=== PATIENT | female | born 1955 | race Hispanic/Latino ===

== ENCOUNTER 2018-05-18 12:13 | Observation (INO) | payer MEDICARE ==
--- NOTE | 2018-05-18 13:12 | ED PDOC ---
Arrival/HPI - General Chief Complaint: Shortness Of Breath Time Seen by Provider: 05/18/18 12:42 Historian: Patient - History of Present Illness Narrative History of Present Illness (Text): 05/18/18 13:08 62yr old female with hx of COPD presents today with dizziness and near syncope. pt states she was sitting in the waiting room at her sons doctors office when she suddenly felt dizzy and weak like she was going to pass out. pt denies chest pain. pt states she was initally feeling short of breath, but denies shortness of breath at present time. she denies fever/chills. pt denies headache. denies uri symptoms. pt with hx of lower leg swelling. denies trauma or injury. patients son states that the patient slumped over in the chair, but was arosable. no other complaints. Past Medical History - Provider Review Nursing Documentation Reviewed: Yes - Travel History Have you recently traveled outside [place] w/in the past 3 mons?: No - Infectious Disease Hx of Infectious Diseases: None - Pulmonary Hx Chronic Obstructive Pulmonary Disease (COPD): Yes - Neurological HX Cerebrovascular Accident: Yes Hx Seizures: Yes - Endocrine/Metabolic Hx Systemic Lupus Erythematosus: Yes - Psychiatric Hx Substance Use: No - Surgical History Hx Orthopedic Surgery: Yes (knee replacement) Other/Comment: thyroidsurgery , abd surgery - Anesthesia Hx Anesthesia: Yes Hx Anesthesia Reactions: No Family/Social History - Physician Review Nursing Documentation Reviewed: Yes Family/Social History: Unknown Family HX Smoking Status: Unknown If Ever Smoked Hx Alcohol Use: No Hx Substance Use: No Allergies/Home Meds Allergies/Adverse Reactions: Allergies codeine Allergy (Verified 05/18/18 12:24) RASH Iodine and Iodide Containing Produc Allergy (Verified 05/18/18 12:24) RASH prednisone Allergy (Verified 05/18/18 12:24) RASH Review of Systems - Review of Systems Constitutional: Fatigue. absent: Fevers Respiratory: SOB. absent: Cough Cardiovascular: absent: Chest Pain, Palpitations Gastrointestinal: absent: Abdominal Pain, Nausea, Vomiting Musculoskeletal: absent: Arthralgias, Back Pain, Neck Pain Skin: absent: Rash, Pruritis Neurological: Dizziness. absent: Headache Psychiatric: absent: Anxiety, Depression Physical Exam Vital Signs Reviewed: Yes Vital Signs Temp Pulse Resp BP Pulse Ox 05/18/18 15:06 73 20 135/87 96 05/18/18 12:13 97.6 F 68 18 133/93 H 98 Temperature: Afebrile Blood Pressure: Hypertensive Pulse: Regular Respiratory Rate: Normal Appearance: Positive for: Well-Appearing, Non-Toxic, Comfortable Pain Distress: None Mental Status: Positive for: Alert and Oriented X 3 Finger Stick Blood Glucose: 110 - Systems Exam Head: Present: Atraumatic Mouth: Present: Moist Mucous Membranes Neck: Present: Normal Range of Motion Respiratory/Chest: Present: Clear to Auscultation, Good Air Exchange. No: Respiratory Distress, Accessory Muscle Use Cardiovascular: Present: Regular Rate and Rhythm, Normal S1, S2. No: Murmurs Abdomen: No: Tenderness, Distention, Rebound, Guarding Back: Present: Normal Inspection Upper Extremity: Present: Normal ROM Lower Extremity: Present: Normal ROM Neurological: Present: GCS=15 Skin: Present: Warm, Dry, Normal Color. No: Rashes Psychiatric: Present: Alert, Oriented x 3 Medical Decision Making ED Course and Treatment: 05/18/18 14:18 62yr old female with dizziness and weakness. cbc wnl cmp wnl trop wnl bnp wnl EKG; normal sinus rhythm at 68 bpm normal axis normal intervals no ST elevations duplex; negative for dvt bilaterally verbal report from [employer] tech. cxr: wnl ct head; FINDINGS: HEMORRHAGE: No intracranial hemorrhage. BRAIN: No mass effect or edema. No atrophy or chronic microvascular ischemic changes. VENTRICLES: Unremarkable. No hydrocephalus. CALVARIUM: Unremarkable. PARANASAL SINUSES: Unremarkable as visualized. No significant inflammatory changes. MASTOID AIR CELLS: Unremarkable as visualized. No inflammatory changes. OTHER FINDINGS: None. IMPRESSION: No acute intracranial findings pt reassessment; pt is non toxic well appearing; no distress. case discussed with dr. lizama, accepts observational status admission for near syncope. asa given PO per dr. lizama; will consult dr. buck. impression; near syncope admit observational status to tele. Reassessment Condition: Re-examined, Improved - Lab Interpretations Lab Results: 05/18/18 13:00 05/18/18 13:00 Lab Results 05/18/18 13:00: WBC 5.0, RBC 4.05, Hgb 12.6, Hct 37.2, MCV 91.9, MCH 31.1, MCHC 33.9, RDW 12.3, Plt Count 167, MPV 9.8, Gran % 64.2, Lymph % (Auto) 25.2, [place] % (Auto) 7.0 H, Eos % (Auto) 3.0, Baso % (Auto) 0.6, Gran # 3.21, Lymph # (Auto ) 1.3, [place] # (Auto) 0.4, Eos # (Auto) 0.2, Baso # (Auto) 0.03 05/18/18 13:00: Sodium 146, Potassium 4.0, Chloride 105, Carbon Dioxide 29, Anion Gap 16, BUN 15, Creatinine 0.8, Est GFR ( Amer) > 60, Est GFR (Non- Af Amer) > 60, Random Glucose 108, Calcium 10.1, Total Bilirubin 0.6, AST 24, ALT 16, Alkaline Phosphatase 90, Lactate Dehydrogenase 542, Total Creatine Kinase 71, Troponin I < 0.01, NT-Pro-B Natriuret Pep 114, Total Protein 8.1, Albumin 4.4, Globulin 3.7, Albumin/Globulin Ratio 1.2 05/18/18 12:36: POC Glucose (mg/dL) 110 - RAD Interpretation Radiology Orders: 05/18/18 12:42 CHEST PORTABLE [RAD] Stat 05/18/18 12:50 DUPLEX LOWER EXTRM VEIN BILAT [US] Stat 05/18/18 13:34 HEAD W/O CONTRAST [CT] Stat - Medication Orders Current Medication Orders: Aspirin (Aspirin) 325 mg PO STAT STA Stop: 05/18/18 15:30 Disposition/Present on Arrival - Present on Arrival Any Indicators Present on Arrival: No History of DVT/PE: No History of Uncontrolled Diabetes: No Urinary Catheter: No History of Decub. Ulcer: No History Surgical Site Infection Following: Abdominal Surgery - Disposition Have Diagnosis and Disposition been Completed?: Yes Diagnosis: Dizziness, Near syncope Disposition: HOSPITALIZED Disposition Time: 15:08 Patient Plan: Observation Patient Problems: Current Active Problems Problem Status Onset Dizziness Acute Near syncope Acute Condition: FAIR Referrals: Jimmy Celeste MD [Primary Care Provider] - Follow up with primary Forms: [employer] (Malawian)
--- NOTE | 2018-05-18 13:16 | RAD ---
Date of service: 05/18/2018 HISTORY: shortness of breath COMPARISON: No prior. FINDINGS: LUNGS: No active pulmonary disease. PLEURA: No significant pleural effusion identified, no pneumothorax apparent. CARDIOVASCULAR: Mild cardiomegaly OSSEOUS STRUCTURES: No significant abnormalities. VISUALIZED UPPER ABDOMEN: Normal. OTHER FINDINGS: None. IMPRESSION: No active disease.
[2018-05-18 13:28] LABS: BASO # 0.03 K/mm3 (0.0-2.0); BASO % 0.6 % (0.0-3.0); EOS # 0.2 (0.0-0.7); GRAN # 3.21 (1.4-6.5); GRAN % 64.2 % (50.0-68.0); HEMOGLOBIN 12.6 g/dL (12.0-16.0); LYMPH # 1.3 (1.2-3.4); LYMPH % 25.2 % (22.0-35.0); MEAN CELL VOLUME 91.9 fl (80.0-105.0); MEAN CORPUSCULAR HEMOGLOBIN 31.1 pg (25.0-35.0); MEAN CORPUSCULAR HGB CONC 33.9 g/dl (31.0-37.0); MEAN PLATELET VOLUME 9.8 fl (7.0-11.0); MONO # 0.4 (0.1-0.6); RBC 4.05 10^6/uL (3.5-6.1); RED CELL DISTRIBUTION WIDTH 12.3 % (11.5-14.5)
[2018-05-18 13:49] LABS: ALB/GLOB RATIO 1.2 (1.1-1.8); ALBUMIN 4.4 g/dL (3.0-4.8); ALT/SGPT 16 U/L (7-56); AST/SGOT 24 U/L (14-36); BLOOD UREA NITROGEN 15 mg/dL (7-21); CALCIUM 10.1 mg/dL (8.4-10.5); GFR NON-AFRICAN AMERICAN > 60
[2018-05-18 13:57] LABS: B-TYPE NATRIURETIC PEPTIDE 114 pg/mL (0-450)
[2018-05-18 14:02] LABS: TROPONIN I < 0.01 ng/mL
--- NOTE | 2018-05-18 14:33 | CT ---
Date of service: 05/18/2018 PROCEDURE: CT HEAD WITHOUT CONTRAST. HISTORY: dizziness COMPARISON: None available. TECHNIQUE: Axial computed tomography images were obtained through the head/brain without intravenous contrast. Radiation dose: Total exam DLP = 951 mGy-cm. This CT exam was performed using one or more of the following dose reduction techniques: Automated exposure control, adjustment of the mA and/or kV according to patient size, and/or use of iterative reconstruction technique. FINDINGS: HEMORRHAGE: No intracranial hemorrhage. BRAIN: No mass effect or edema. No atrophy or chronic microvascular ischemic changes. VENTRICLES: Unremarkable. No hydrocephalus. CALVARIUM: Unremarkable. PARANASAL SINUSES: Unremarkable as visualized. No significant inflammatory changes. MASTOID AIR CELLS: Unremarkable as visualized. No inflammatory changes. OTHER FINDINGS: None. IMPRESSION: No acute intracranial findings
--- NOTE | 2018-05-18 16:30 | US ---
HISTORY: Leg pain and swelling. Evaluate for DVT PHYSICIAN(S): Manas Keating MD. TECHNIQUE: Duplex sonography and color-flow Doppler with graded compression were used to evaluate the deep venous systems of both lower extremities. The exam is limited by edema. FINDINGS: The visualized deep venous systems of both lower extremities are sonographically normal and compressible. Normal wave forms and augmentation are seen. There is no sonographic evidence for deep venous thrombosis in the visualized segments of both lower extremities. IMPRESSION: No sonographic evidence for deep venous thrombosis in the visualized segments of both lower extremities.
[2018-05-18 20:09] VITALS: BMI 37.5
[2018-05-18] MEDS ORDERED: Pneumococcal 23-Valent Vaccine IM ONE (20:09)
--- NOTE | 2018-05-19 00:35 | CP.PCM.PN ---
Subjective - Date & Time of Evaluation Date of Evaluation: 05/19/18 Time of Evaluation: 00:30 - Subjective Subjective: PGY-[address] Baxter CC: Chest pain CP locates L mid clavicular. burning. 5/10, x 25 minutes that woke her up from sleep Denies SOB, diaphoresis, NV, dizzinessness Hx lupus No cardiac hx endorsed by pt VS: 135/77 HR 62 RR 16 RRR, S1 S2, pain non-reproductable CTA b/l no w/r/r/ Soft NTND A/P: likely atypical chest. continue work up to r/o acs due to lupus hx - trops - EKG Objective - Vital Signs/Intake and Output Vital Signs (last 24 hours): Temp Pulse Resp BP Pulse Ox 98.2 F 64 20 143/68 97 05/18/18 19:38 05/18/18 19:38 05/18/18 19:38 05/18/18 19:38 05/18/18 18:10 - Medications Medications: Current Medications Acetaminophen (Tylenol 325mg Tab) 650 mg PO Q6H PRN PRN Reason: Pain, Mild (1-3) Aspirin (Aspirin Chewable) 81 mg PO DAILY [facility] Levetiracetam (Keppra) 750 mg PO BID [facility] Last Admin: 05/18/18 22:11 Dose: 750 mg
[2018-05-19 01:43] LABS: PH,URINE 7.5 (4.7-8.0); URINE BILIRUBIN NEGATIVE (NEGATIVE); URINE BLOOD NEGATIVE (NEGATIVE); URINE GLUCOSE (UA) NEGATIVE (NEGATIVE); URINE LEUKOCYTE ESTERASE NEGATIVE Leu/uL (NEGATIVE); URINE PROTEIN NEGATIVE mg/dL (<30 mg/dL); URINE UROBILINOGEN 0.2 E.U./dL (<1 E.U./dL)
[2018-05-19 01:50] LABS: URINE APPEARANCE CLEAR (CLEAR); URINE COLOR STRAW (YELLOW)
[2018-05-19 02:12] LABS: TROPONIN I < 0.01 ng/mL
--- NOTE | 2018-05-19 04:35 | HP ---
Copied To: Ken Pond DO Attending MD: Ken Pond DO HISTORY OF PRESENT ILLNESS: I was called down to the emergency room to see her and I asked to go to see her in her hospital bed in room 264. She comes in with shortness of breath. This is a 62-year-old with history of COPD, but had dizziness and near syncope. She was sitting in a waiting room at her son's doctor's office and she felt dizzy. She felt she was going to pass out. No chest pain. A little short of breath. No trauma. Kind of slumped over on the chair, but was arousable. She said this happened to her in the past. PAST MEDICAL HISTORY: She has COPD. She had CVAs. She has seizure history. She has lupus history. She had a total knee replacement, thyroid surgery, abdominal surgery. FAMILY HISTORY: Unknown. SOCIAL HISTORY: Never smoked. No alcohol. No drugs. ALLERGIES: ALLERGIC TO CODEINE, IODINE AND PREDNISONE. MEDICATIONS: She did give a list of the medication to the nurse and it is not in the computer yet, I will wait for that to populate. REVIEW OF SYSTEMS: She is tired. She is short of breath. She felt dizzy. No chest pain or palpitations. No abdominal pain, nausea or vomiting. No arthralgias, back pain or neck pain. No rashes or itching. She was dizzy. No headache. No anxiety or depression. PHYSICAL EXAMINATION: VITAL SIGNS: She has a 97.6 temp, 68 pulse, 18 respiratory rate, 133/93 blood pressure, but blood pressure dropped to 135/87 and 98% O2 sat down to 96% O2 sat. Little hypertensive, we have to put her back on her medications. GENERAL: She is comfortable at this time, well appearing, nontoxic, no acute changes and feel dizzy at this time. Alert and oriented x3. Blood sugar was 110. HEENT: Head is atraumatic and normocephalic. Mucous membranes are moist. NECK: Supple. HEART: Regular rate. Normal S1, S2. LUNGS: Decreased breath sounds but clear to auscultation bilaterally. Poor inspiration. ABDOMEN: Soft, nontender. Positive bowel sounds. No guarding, no rebound, no CVA tenderness. EXTREMITIES: Have no edema. She moves all four extremities equally. Equal strength bilaterally. NEUROLOGY: GCS is 15. Cranial nerves II through XII grossly intact. Extraocular muscles are intact. SKIN: For I could tell is no rashes, no ulcers, no lesions. PSYCHIATRIC: She is alert and oriented x3. LYMPHATICS: Thyroid midline. No palpable appreciable lymphadenopathy. LABORATORY DATA: She had a bunch of tests done. Chest x-ray was okay. Head CAT scan was okay. Extremity ultrasound was okay. She has 146 sodium, potassium 4, BUN 15, creatinine 0.8, GFR greater than 60, sugar is 108, calcium 10.1, total bili is 0.6, AST is 24, ALT is 16, alk phos 90. Lactate dehydrogenase is 542, total creatine kinase is 71. Troponin I is less than 0.01. BNP is 114. Total protein is 8.1, albumin is 4.4. White count is 5, hemoglobin is 12.6, hematocrit 37.2, platelets 167. ASSESSMENT AND PLAN: She is here for near syncope. She will have a consult with Dr. Powers, the neurologist. She had an aspirin already given to her, I will continue a baby aspirin tomorrow. I am awaiting for the rest of her medicines to populate and I will continue them. She needs medicines for lupus. She has medicines for her blood pressure, her lungs, all are chronic diseases. Hopefully she will be on observation, she will improve and tomorrow if all the tests are normal as per Neurology. She is on telemetry. Ken Pond DO MTDD
[2018-05-19] MEDS ORDERED: Levothyroxine 125 MCG TAB PO SCH (06:00)
[2018-05-19 06:33] VITALS: O2SAT 98
[2018-05-19 06:39] LABS: ALB/GLOB RATIO 1.2 (1.1-1.8); ALBUMIN 3.8 g/dL (3.0-4.8); ALT/SGPT 21 U/L (7-56); AST/SGOT 25 U/L (14-36); BLOOD UREA NITROGEN 12 mg/dL (7-21); CALCIUM 9.4 mg/dL (8.4-10.5); GFR NON-AFRICAN AMERICAN > 60
[2018-05-19 06:42] LABS: HEMOGLOBIN 11.3 g/dL (12.0-16.0); MEAN CELL VOLUME 91.8 fl (80.0-105.0); MEAN CORPUSCULAR HEMOGLOBIN 30.8 pg (25.0-35.0); MEAN CORPUSCULAR HGB CONC 33.5 g/dl (31.0-37.0); MEAN PLATELET VOLUME 10.1 fl (7.0-11.0); RBC 3.67 10^6/uL (3.5-6.1); RED CELL DISTRIBUTION WIDTH 12.4 % (11.5-14.5); WHITE BLOOD COUNT 4.1 10^3/ul (4.5-11.0)
[2018-05-19] MEDS ORDERED: Naproxen 275 mg Tab PO SCH (10:00)
--- NOTE | 2018-05-19 10:15 | CARD ---
APPROVED REPORT Date of service: 05/18/2018 EKG Measurement Heart [id number] <Conclusion> Normal sinus rhythm Normal ECG
--- NOTE | 2018-05-19 12:06 | CARD ---
APPROVED REPORT Date of service: 05/19/2018 EKG Measurement Heart [id number] <Conclusion> Normal sinus rhythm Mild NSSTW changes
[2018-05-19 12:18] VITALS: BP 139/51; PULSE 64; RESP 18; TEMP 97.9
--- NOTE | 2018-05-19 21:05 | CON ---
Copied To: Manas Allen MD Attending MD: Manas Allen MD DATE: 05/19/2018 CARDIOLOGY CONSULTATION HISTORY OF PRESENT ILLNESS: The patient is a 62-year-old woman who presents with a syncopal episode. The patient apparently has had recurrent syncope in the past. She has been worked up extensively at [facility] by Neurology. She was told to have questionable CVAs in the past. PAST MEDICAL HISTORY: Notable for hypertension and questionable hypercholesterolemia. No previous cardiac history is noted. Negative diabetes mellitus. SOCIAL HISTORY: The patient does not smoke. REVIEW OF SYSTEMS: A 14-point review of systems was reviewed in detail. No angina, no shortness of breath, no edema. The patient is sedentary and has a difficult time doing anything more than walking. Trace edema in the lower extremities. PHYSICAL EXAMINATION VITAL SIGNS: Blood pressure is 139/51, the heart rate is in the 60s. NECK: Negative JVD. LUNGS: Without rales. HEART: Reveals S1 and S2. EXTREMITIES: Without edema. LABORATORY DATA: Hemoglobin is 11.3. Chemistries: Troponins are negative x3. EKG shows no acute changes. CT scan shows no bleed. Dopplers of the lower extremities reveal no DVTs. IMPRESSION: 1. Recurrent syncope. 2. No arrhythmias noted on telemetry. 3. No evidence for acute coronary syndrome. 4. Hypertension. 5. Trace edema. 6. Sedentary life. 7. Obesity. PLAN: Given these findings, there is no evidence for acute coronary syndrome and no acute arrhythmias, the patient can be discharged from a cardiac perspective. We will arrange for an outpatient stress test given the patient's multiple cardiac risk factors. We will need to rule out LV dysfunction which we can see on her echocardiogram. Manas Allen MD
--- NOTE | 2018-05-20 00:39 | CON ---
Copied To: Darryn Powers MD Attending MD: Darryn Powers MD DATE: 05/19/2018 HISTORY OF PRESENT ILLNESS: A 62-year-old female with COPD, dizziness, was in waiting room at her son's office, felt dizzy, felt like passing out, came to the hospital. PAST MEDICAL HISTORY: COPD, CVA, seizure, history of lupus, status post total knee replacement, thyroid surgery, abdominal surgery. SOCIAL HISTORY: Does not smoke, does not drink. ALLERGIES: ALLERGIC TO CODEINE, IODINE AND PREDNISONE. REVIEW OF SYSTEMS: A 10-point review of systems was negative. PHYSICAL EXAMINATION: HEENT: Normocephalic, atraumatic. NECK: Supple. NEUROLOGIC: Awake,orientated to self and place. Cranial nerve II through XII are tested. Pupils reactive. EOM intact. Visual lopez full. No facial asymmetry. Tongue midline. Motor examination: Moves all the extremities equally. Tone normal. Deep tendon reflexes 1+. Both plantars are downgoing. Sensory appears intact. Cerebellar gait normal. IMPRESSION AND PLAN: Syncope, less likely seizure. Her CAT scan was negative and she to follow up. Darryn Powers MD
--- NOTE | 2018-05-20 01:49 | DS ---
Copied To: Ken Pond DO Attending MD: Ken Pond DO HISTORY OF PRESENT ILLNESS: She is resting comfortably in bed. She is able to walk to the bathroom. She has abnormal near syncope, thoughts or feelings in the head. No dizziness. She is on Anaprox, aspirin, Daliresp, Ecotrin, folic acid, Keppra, Norvasc, Plaquenil, Synthroid, Tylenol and vitamin B1, which are basic medications she takes at home. She came in with a near syncopal episode and she is doing well. She slept well. She is hungry. PHYSICAL EXAMINATION: VITAL SIGNS: She has a 97.6 temp, 58 pulse, 131/62 blood pressure, 20 respiratory rate, 98% O2 sat on room air. HEENT: Head is atraumatic, normocephalic. HEART: Regular rate. LUNGS: Decreased breath sounds, but clear. ABDOMEN: Soft, nontender. Positive bowel sounds. Obese. EXTREMITIES: No edema. She is quite comfortable this morning. Last night, she had some atypical chest pain and they called the house doctor. LABORATORY DATA: She has a 145 sodium, potassium 4, BUN 12, creatinine 0.8, GFR is greater than 60, sugar is 104, calcium is 9.4, total bili is 0.5, AST is 25, ALT is 21, alk phos 73. She had 2 troponins. They were both less than 0.01. Total protein 7. TSH is 2.15. The urine is clean. The white count is 4.1, hemoglobin 11.3, hematocrit 33.7, platelets of 157. ASSESSMENT AND PLAN: I am hoping that after Cardiology which I called in and Neurology sees her, she could be discharged home after lunch, may be later on this afternoon. So far the tests that she had here were she did very well with. No acute intracranial findings on the CAT scan of the brain. She said she is back to her old self that feeling in the head went away, not sure why it came. She is also eating well. We will wait for Neurology and Cardiology to see her and after we get the okay, we will discharge her later this afternoon. The patient understands that. I discussed it with the nurse. This is hopefully a discharge summary of Rosanne Frazier who had a near syncope, hypertension, chronic obstructive pulmonary disease, seizure history, also lupus history, but she is here for near syncope. Ken Pond DO
== END 2018-05-19 15:06 | disposition home or self-care (01) ==
LOC: ED 12:13 → ERH 15:25 → 2RNO 18:09
PROVIDERS: ADMIT Family Medicine; ATTEND Family Medicine
DX: R55 Syncope and collapse (principal); R07.89 Other chest pain; J44.9 Chronic obstructive pulmonary disease, unspecified; I10 Essential (primary) hypertension; M32.9 Systemic lupus erythematosus, unspecified; R56.9 Unspecified convulsions; E66.9 Obesity, unspecified; Z68.38 Body mass index [BMI] 38.0-38.9, adult; Z86.73 Personal history of transient ischemic attack (TIA), and cerebral infarction without residual deficits; Z96.659 Presence of unspecified artificial knee joint; Z88.5 Allergy status to narcotic agent
CPT/HCPCS: 36415; 70450; 71045; 80053; 81003; 82550; 82948; 83615; 83880; 84443; 84484; 85025; 85027; 93005; 93970; 97116; 97161; 99284; G0378; G8978; G8979; G8980